=== PATIENT | male | born 1970 | race Caucasian/White ===

== ENCOUNTER 2020-04-19 06:07 | Emergency (ER) | payer OTHER ==
[~2020-04-19 06:07] MED LIST: ALLOPURINOL 30300 MG PO; AMLODIPINE BESY10 MG PO; COLCRYS0.6 MG PO; COZAAR100 MG PO; DOXYCYCLINE HY100 MG PO; HYDROCODON-ACE1 EAC2 PO; KEFLEX500 MG PO; LODINE400 MG PO; PERCOCET 5-3251 EACH PO; VENTOLIN HFA18 GM INH; VIBRAMYCIN100 MG PO; XARELTO15 MG PO; XARELTO20 MG PO
[2020-04-19 08:39] LABS: BASOPHIL 0.7 % (0-2); EOSINOPHIL 2.1 % (0-5); HCT 48.7 % (42.0-52.0); HGB 15.9 g/dl (13.2-18.0); LYMPHOCYTE 25.3 % (15-48); MCH 33.5 pg (25.0-31.0); MCHC 32.6 g/dL (32.0-36.0); MCV 102.7 fL (78.0-100.0); MONOCYTE 7.8 % (0-12); MPV 9.8 fL (6.0-9.5); NEUTROPHIL 63.5 % (41-80); NRBC 0; PLT 141 K/uL (150-400); RBC 4.74 M/uL (4.70-6.00); WBC 10.7 K/uL (4.0-10.5)
[2020-04-19 08:57] LABS: ALBUMIN 3.3 g/dL (3.4-5.0); BILIRUBIN - TOTAL 0.6 mg/dL (0.2-1.0); BUN/CREAT RATIO (CALC) 14.8 RATIO; CREATININE 0.88 mg/dL (0.67-1.17); GLOBULIN (CALCULATION) 3.3 g/dL; POTASSIUM 4.7 mmol/L (3.5-5.1); TOTAL PROTEIN 6.6 g/dL (6.4-8.2)
[2020-04-19] MEDS ORDERED: PERCOCET 10-321 EACH PO (11:40)
[2020-04-19] MEDS ORDERED: LOVENOX100 MG/1 M SC (11:40)
== END 2020-04-19 12:02 | disposition home or self-care (01) ==
LOC: FER 06:07
PROVIDERS: Emergency Medicine
DX: I80.12 Phlebitis and thrombophlebitis of left femoral vein (principal); Z87.891 Personal history of nicotine dependence; Z20.822 Contact with and (suspected) exposure to COVID-19
CPT/HCPCS: 36415; 80053; 82550; 83605; 84145; 85025; 93971; J1170; J1644; J2405; J7030; U0002

== ENCOUNTER 2020-04-23 08:25 | Emergency (ER) | payer OTHER ==
[~2020-04-23 08:25] MED LIST changes: +LOVENOX100 MG/1 M SC; +PERCOCET 10-321 EACH PO
[2020-04-23 10:12] LABS: BASOPHIL 0.8 % (0-2); EOSINOPHIL 3.1 % (0-5); HCT 49.6 % (42.0-52.0); HGB 16.1 g/dl (13.2-18.0); LYMPHOCYTE 26.9 % (15-48); MCHC 32.5 g/dL (32.0-36.0); MCV 104.9 fL (78.0-100.0); MONOCYTE 7.5 % (0-12); MPV 10.3 fL (6.0-9.5); NEUTROPHIL 61.1 % (41-80); NRBC 0; PLT 164 K/uL (150-400); RBC 4.73 M/uL (4.70-6.00)
[2020-04-23 10:15] LABS: INR 0.94 (0.9-1.2); PROTHROMBIN TIME 11.9 SECONDS (11.4-13.6); PTT 30.1 SECONDS (22.2-34.7)
[2020-04-23 10:26] LABS: ALBUMIN 3.2 g/dL (3.4-5.0); BILIRUBIN - TOTAL 0.5 mg/dL (0.2-1.0); BUN/CREAT RATIO (CALC) 19.4 RATIO; CREATININE 0.72 mg/dL (0.67-1.17); GLOBULIN (CALCULATION) 3.8 g/dL; POTASSIUM 4.5 mmol/L (3.5-5.1)
== END 2020-04-23 16:00 | disposition other institution (70) ==
LOC: FER 08:25
PROVIDERS: Emergency Medicine
DX: I82.402 Acute embolism and thrombosis of unspecified deep veins of left lower extremity (principal); I77.1 Stricture of artery; F17.210 Nicotine dependence, cigarettes, uncomplicated; Z20.822 Contact with and (suspected) exposure to COVID-19
CPT/HCPCS: 36415; 80053; 85025; 85610; 85730; J1644; U0002

== ENCOUNTER 2020-08-02 13:35 | Day surgery (SDCO) | payer OTHER ==
[~2020-08-02] VITALS: Ht 167.6 cm; Wt 107.2 kg
[2020-08-02] MEDS ORDERED: PERCOCET 7.5/321 TAB PO (14:26)
[2020-08-02 15:27] LABS: BASOPHIL 0.6 % (0-2); EOSINOPHIL 0 % (0-5); HCT 53.9 % (42.0-52.0); HGB 18.6 g/dl (13.2-18.0); LYMPHOCYTE 5.2 % (15-48); MCH 34.2 pg (25.0-31.0); MCHC 34.5 g/dL (32.0-36.0); MCV 99.1 fL (78.0-100.0); MONOCYTE 4.8 % (0-12); MPV 10.4 fL (6.0-9.5); NEUTROPHIL 88.3 % (41-80); NRBC 0; PLT 125 K/uL (150-400); RBC 5.44 M/uL (4.70-6.00); RDW 13.3 % (11.5-14.0); WBC 20.8 K/uL (4.0-10.5)
[2020-08-02 15:39] LABS: ALBUMIN 3.6 g/dL (3.4-5.0); BILIRUBIN - TOTAL 1.4 mg/dL (0.2-1.0); BUN/CREAT RATIO (CALC) 14.6 RATIO; CREATININE 0.89 mg/dL (0.67-1.17); GLOBULIN (CALCULATION) 4.5 g/dL; TOTAL PROTEIN 8.1 g/dL (6.4-8.2)
[2020-08-02 15:45] LABS: LACTIC ACID 1.4 mmol/L (0.4-1.9)
[2020-08-02] MEDS ORDERED: PRINIVIL20 MG PO (18:23)
[2020-08-03 05:39] LABS: BASOPHIL 0.4 % (0-2); EOSINOPHIL 0.4 % (0-5); HCT 45.5 % (42.0-52.0); HGB 15.6 g/dl (13.2-18.0); LYMPHOCYTE 12.3 % (15-48); MCH 34.4 pg (25.0-31.0); MCHC 34.3 g/dL (32.0-36.0); MCV 100.4 fL (78.0-100.0); MONOCYTE 4.7 % (0-12); MPV 10.3 fL (6.0-9.5); NEUTROPHIL 81.6 % (41-80); NRBC 0; PLT 101 K/uL (150-400); RBC 4.53 M/uL (4.70-6.00); RDW 13.3 % (11.5-14.0); WBC 15.4 K/uL (4.0-10.5)
[2020-08-03 07:19] LABS: CREATININE 0.79 mg/dL (0.67-1.17); POTASSIUM 3.9 mmol/L (3.5-5.1)
[2020-08-03] MEDS ORDERED: BACTRIM DS TAB1 EACH PO (09:56)
== END 2020-08-03 12:40 | disposition home or self-care (01) ==
LOC: FER 13:35 → FMS 17:26
PROVIDERS: Emergency Medicine; ADMIT Internal Medicine
DX: L03.116 Cellulitis of left lower limb (principal); S70.372A Other superficial bite of left thigh, initial encounter; I82.812 Embolism and thrombosis of superficial veins of left lower extremity; M10.9 Gout, unspecified; I10 Essential (primary) hypertension; F17.210 Nicotine dependence, cigarettes, uncomplicated; F10.10 Alcohol abuse, uncomplicated; I87.8 Other specified disorders of veins; Z86.711 Personal history of pulmonary embolism; Z79.01 Long term (current) use of anticoagulants; Z79.899 Other long term (current) drug therapy; Z95.820 Peripheral vascular angioplasty status with implants and grafts; W54.0XXA Bitten by dog, initial encounter
CPT/HCPCS: 36415; 73560; 73590; 80048; 80053; 83605; 85025; 87040; 93971; G0378; J1170; J2405; J2543; J3370; J7030; J7040; J7050

== ENCOUNTER 2020-08-23 07:00 | Emergency (ER) | payer OTHER ==
[~2020-08-23 07:00] MED LIST changes: +BACTRIM DS TAB1 EACH PO; +PERCOCET 7.5/321 TAB PO; +PRINIVIL20 MG PO
[2020-08-23 08:31] LABS: BASOPHIL 0.8 % (0-2); HCT 51.8 % (42.0-52.0); HGB 17.4 g/dl (13.2-18.0); LYMPHOCYTE 23.7 % (15-48); MCH 33.9 pg (25.0-31.0); MCHC 33.6 g/dL (32.0-36.0); MCV 100.8 fL (78.0-100.0); MONOCYTE 7.9 % (0-12); MPV 9.4 fL (6.0-9.5); NRBC 0; PLT 150 K/uL (150-400); RBC 5.14 M/uL (4.70-6.00); RDW 13.2 % (11.5-14.0); WBC 8.6 K/uL (4.0-10.5)
[2020-08-23 08:37] LABS: INR 1.22 (0.9-1.2); PROTHROMBIN TIME 14.6 SECONDS (11.4-13.6); PTT 30.3 SECONDS (22.2-34.7)
[2020-08-23 08:54] LABS: ALBUMIN 3.2 g/dL (3.4-5.0); BILIRUBIN - TOTAL 0.5 mg/dL (0.2-1.0); C-REACTIVE PROTEIN 0.9 mg/dL (<=0.90); CREATININE 0.77 mg/dL (0.67-1.17); POTASSIUM 4.7 mmol/L (3.5-5.1); TOTAL PROTEIN 7.2 g/dL (6.4-8.2)
[2020-08-23] MEDS ORDERED: CEPHALEXIN500 MG PO (09:35)
== END 2020-08-23 09:47 | disposition home or self-care (01) ==
LOC: FER 07:00
PROVIDERS: Emergency Medicine
DX: I80.8 Phlebitis and thrombophlebitis of other sites (principal); I10 Essential (primary) hypertension; F17.210 Nicotine dependence, cigarettes, uncomplicated; Z79.01 Long term (current) use of anticoagulants
CPT/HCPCS: 36415; 80053; 84145; 85025; 85610; 85730; 86140; 93971

== ENCOUNTER 2020-09-10 12:47 | Emergency (ER) | payer OTHER ==
[~2020-09-10 12:47] MED LIST changes: +CEPHALEXIN500 MG PO
[2020-09-10] MEDS ORDERED: CLEOCIN300 MG PO (16:25)
== END 2020-09-10 16:32 | disposition home or self-care (01) ==
LOC: FER 12:47
DX: I82.611 Acute embolism and thrombosis of superficial veins of right upper extremity (principal); I10 Essential (primary) hypertension
CPT/HCPCS: 93971

== ENCOUNTER 2020-09-12 04:14 | Emergency (ER) | payer OTHER ==
[~2020-09-12 04:14] MED LIST changes: +CLEOCIN300 MG PO
== END 2020-09-12 05:00 | disposition home or self-care (01) ==
LOC: FER 04:14
DX: I80.8 Phlebitis and thrombophlebitis of other sites (principal); I10 Essential (primary) hypertension; F17.210 Nicotine dependence, cigarettes, uncomplicated; Z79.899 Other long term (current) drug therapy
CPT/HCPCS: 93971; J1650

== ENCOUNTER 2020-12-01 08:55 | Emergency (ER) | payer OTHER | END 2020-12-01 13:00 | disposition home or self-care (01) | LOC: FER 08:55 | DX: I87.8 Other specified disorders of veins (principal); F17.210 Nicotine dependence, cigarettes, uncomplicated | CPT/HCPCS: 93970 ==

== ENCOUNTER 2020-12-11 06:30 | Emergency (ER) | payer OTHER ==
[2020-12-11 07:14] LABS: BASOPHIL 0.9 % (0-2); EOSINOPHIL 2.5 % (0-5); HCT 51.2 % (42.0-52.0); HGB 17.3 g/dl (13.2-18.0); LYMPHOCYTE 29.5 % (15-48); MCH 34.1 pg (25.0-31.0); MCHC 33.8 g/dL (32.0-36.0); MCV 100.8 fL (78.0-100.0); MONOCYTE 7.8 % (0-12); MPV 9.6 fL (6.0-9.5); NEUTROPHIL 58.7 % (41-80); NRBC 0; PLT 148 K/uL (150-400); RBC 5.08 M/uL (4.70-6.00); RDW 12.6 % (11.5-14.0); WBC 10.7 K/uL (4.0-10.5)
[2020-12-11 07:19] LABS: INR 1.03 (0.9-1.2); PROTHROMBIN TIME 12.9 SECONDS (11.8-13.4); PTT 30.5 SECONDS (24.4-34.7)
[2020-12-11 07:26] LABS: ALBUMIN 3.2 g/dL (3.4-5.0); BILIRUBIN - TOTAL 0.6 mg/dL (0.2-1.0); BUN/CREAT RATIO (CALC) 15.1 RATIO; CREATININE 0.73 mg/dL (0.67-1.17); GLOBULIN (CALCULATION) 3.9 g/dL; POTASSIUM 4.3 mmol/L (3.5-5.1); TOTAL PROTEIN 7.1 g/dL (6.4-8.2)
== END 2020-12-11 10:25 | disposition home or self-care (01) ==
LOC: FER 06:30
PROVIDERS: Internal Medicine
DX: I82.811 Embolism and thrombosis of superficial veins of right lower extremity (principal); I10 Essential (primary) hypertension; Z86.718 Personal history of other venous thrombosis and embolism
CPT/HCPCS: 36415; 80053; 84550; 85025; 85610; 85730; 93971

== ENCOUNTER 2020-12-13 13:03 | Emergency (ER) | payer OTHER | END 2020-12-13 17:05 | disposition home or self-care (01) | LOC: FER 13:03 | DX: I80.01 Phlebitis and thrombophlebitis of superficial vessels of right lower extremity (principal); I10 Essential (primary) hypertension; F17.200 Nicotine dependence, unspecified, uncomplicated | CPT/HCPCS: 93971 ==

== ENCOUNTER 2021-01-13 09:44 | Emergency (ER) | payer OTHER ==
[2021-01-13] MEDS ORDERED: NORCO 5-325 TA1 EACH PO (10:51)
== END 2021-01-13 10:53 | disposition home or self-care (01) ==
LOC: FER 09:44
DX: I80.01 Phlebitis and thrombophlebitis of superficial vessels of right lower extremity (principal)
CPT/HCPCS: 93971

== ENCOUNTER 2021-04-04 10:12 | Emergency (ER) | payer OTHER ==
[~2021-04-04 10:12] MED LIST changes: +NORCO 5-325 TA1 EACH PO
[2021-04-04] MEDS ORDERED: NORCO 5-325 TA1 EACH PO (11:34)
== END 2021-04-04 12:07 | disposition home or self-care (01) ==
LOC: FER 10:12
DX: S83.282A Other tear of lateral meniscus, current injury, left knee, initial encounter (principal); I10 Essential (primary) hypertension; X50.1XXA Overexertion from prolonged static or awkward postures, initial encounter; Y93.89 Activity, other specified; Y92.009 Unspecified place in unspecified non-institutional (private) residence as the place of occurrence of the external cause
CPT/HCPCS: 73564

== ENCOUNTER 2021-05-22 11:22 | Emergency (ER) | payer OTHER ==
[2021-05-22] MEDS ORDERED: CYCLOBENZAPRINE10 MG PO (13:51)
== END 2021-05-22 14:13 | disposition home or self-care (01) ==
LOC: FER 11:22
DX: M62.838 Other muscle spasm (principal); I10 Essential (primary) hypertension; F17.210 Nicotine dependence, cigarettes, uncomplicated; J45.909 Unspecified asthma, uncomplicated
CPT/HCPCS: 73030

== ENCOUNTER 2021-05-25 06:41 | Emergency (ER) | payer OTHER ==
[~2021-05-25 06:41] MED LIST changes: +CYCLOBENZAPRINE10 MG PO
[2021-05-25] MEDS ORDERED: PERCOCET 5-3251 EACH PO (07:00)
[2021-05-25] MEDS ORDERED: MEDROL 4MG DOSEP4 MG PO (08:13)
== END 2021-05-25 08:52 | disposition home or self-care (01) ==
LOC: FER 06:41
DX: M25.511 Pain in right shoulder (principal); I10 Essential (primary) hypertension; J45.909 Unspecified asthma, uncomplicated; F17.210 Nicotine dependence, cigarettes, uncomplicated; Z86.73 Personal history of transient ischemic attack (TIA), and cerebral infarction without residual deficits; Z79.01 Long term (current) use of anticoagulants; Z79.899 Other long term (current) drug therapy
CPT/HCPCS: 96372; 99283; J1170; J2930

== ENCOUNTER 2021-05-29 07:53 | Emergency (ER) | payer OTHER ==
[~2021-05-29 07:53] MED LIST changes: +MEDROL 4MG DOSEP4 MG PO
== END 2021-05-29 11:30 | disposition home or self-care (01) ==
LOC: FER 07:53
DX: I80.8 Phlebitis and thrombophlebitis of other sites (principal); I10 Essential (primary) hypertension; F17.210 Nicotine dependence, cigarettes, uncomplicated; Z28.310 Unvaccinated for COVID-19; Z79.899 Other long term (current) drug therapy
CPT/HCPCS: 93971

== ENCOUNTER 2021-09-14 06:04 | Emergency (ER) | payer OTHER ==
[2021-09-14] MEDS ORDERED: PERCOCET 5-3251 EACH PO (08:29)
[2021-09-14] MEDS ORDERED: CEPHALEXIN500 MG PO (08:29)
[2021-09-14] MEDS ORDERED: XARELTO20 MG PO (08:36)
== END 2021-09-14 08:59 | disposition home or self-care (01) ==
LOC: FER 06:04
DX: L03.115 Cellulitis of right lower limb (principal); L03.116 Cellulitis of left lower limb; I80.03 Phlebitis and thrombophlebitis of superficial vessels of lower extremities, bilateral; I10 Essential (primary) hypertension; F17.210 Nicotine dependence, cigarettes, uncomplicated; Z79.01 Long term (current) use of anticoagulants; Z79.899 Other long term (current) drug therapy
CPT/HCPCS: 93970; J0696; J1170

== ENCOUNTER 2021-11-03 11:58 | Emergency (ER) | payer OTHER | END 2021-11-03 14:32 | disposition home or self-care (01) | LOC: FER 11:58 | DX: I82.811 Embolism and thrombosis of superficial veins of right lower extremity (principal); I10 Essential (primary) hypertension; J45.909 Unspecified asthma, uncomplicated; F17.210 Nicotine dependence, cigarettes, uncomplicated; Z28.310 Unvaccinated for COVID-19; Z79.01 Long term (current) use of anticoagulants; Z86.718 Personal history of other venous thrombosis and embolism; Z79.899 Other long term (current) drug therapy | CPT/HCPCS: 93971 ==